=== PATIENT | male | born 1950 | race Caucasian/White ===

== ENCOUNTER → 2016-10-28 | Outpatient (CLI) | payer OTHER ==
[~2016-10-28] MED LIST: ALPRAZOLAM; ASA5UEC PO; ASPIR 8181 MG PO; ATORVASTATIN CA40 MG PO; CARVEDILOL12.5 MG PO; CIPRO500 MG PO; CIPROFLOXACIN500 M1 PO; COLACE100 MG PO; DIABETA 5MG TABL5 MG PO; DOXYCYCLINE 10100 MG PO; GLYBURIDE 5 MG T5 M1 PO; HYDROCODONE-AP1 EAC6 PO; IMDUR 30 MG TAB30 M1 PO; ISOSORBIDE DINI30 MG PO; LASIX 40 MG TAB40 M2 PO; LISINOPRIL5 MG PO; METFORMIN HCL500 MG PO; PAXIL10 MG; POTASSIUM20 PO; PRINIVIL10 MG PO; PRINIVIL20 MG PO; RAPAFLO4 MG PO; SIMVASTATIN20 MG PO; TOPROL XL50 MG PO; XARELTO15 MG PO; XARELTO20 MG PO
== END ==
LOC: NUC 10-20 11:14
DX: I11.0 Hypertensive heart disease with heart failure (principal); I50.9 Heart failure, unspecified

== ENCOUNTER → 2017-05-04 | Outpatient (CLI) | payer OTHER ==
--- NOTE | ~2017-05-04 | 2DMMODE ---
[facility] [place] [address] 2 D/M-MODE ECHOCARDIOGRAM Name: MARCEL LI Lico Room #: REG [facility]END[facility]#: [id number] Admission: 05/04/17 Attend Phys: Pola Payton MD Discharge: Date of : 52 Date of Service: 05/04/17 0947 Report #: [id number] THIS REPORT FOR: //name// APPROVED REPORT Study performed: 05/04/2017 08:42:59 EXAM: Comprehensive 2D, Doppler, and color-flow Echocardiogram Patient Location: Out-Patient Status: routine BSA: 2.34 HR: 68 bpm BP: 184/102 mmHg Rhythm: NSR Other Information Study Quality: Adequate Indications CAD. Hx: CABG, CHF, PE, HTN, HLP, morbid obesity 2D Dimensions RVDd: 38.19 mm LVEF(%): 49.87 (>50%) IVSd: 14.41 (7-11mm) LVOT Diam: 20.43 (18-24mm) LVDd: 52.24 mm PWd: 14.39 (7-11mm) Ascending Ao: 37.53 (22-36mm) LVDs: 38.93 (25-40mm) Aortic Root: 35.43 mm Green's LVEF: 49.87 % Volumes Left Atrial Volume (Systole) Single Plane 4CH: 87.28 mL Single Plane 2CH: 79.65 mL LA ESV Index: 38.00 mL/m2 Aortic Valve AoV Peak Tera.: 1.42 m/s AO Peak Gr.: 8.08 mmHg LVOT Max P.07 mmHg LVOT Max V: 1.23 m/s SHREYA Vmax: 2.84 cm2 Mitral Valve E/A Ratio: 1.5 MV Decel. Time: 184.70 ms [facility] [place] [address] 2 D/M-MODE ECHOCARDIOGRAM Name: MARCEL LI V Room #: [facility].#: [id number] Admission: 05/04/17 Attend Phys: Pola Payton MD Discharge: Date of : 52 Date of Service: 05/04/17 0947 Report #: [id number] MV E Max Tera.: 1.12 m/s MV A Tera.: 0.77 m/s MV PHT: 53.56 ms IVRT: 78.43 ms Pulmonary Valve PV Peak Tera.: 1.14 m/s PV Peak Gr.: 5.23 mmHg Pulmonary Vein P Vein S: 0.49 m/s P Vein A: 0.26 m/s P Vein D: 0.63 m/s P Vein A Dur.: 110.7 msec P Vein S/D Ratio: 0.78 Tricuspid Valve TR Peak Tera.: 1.99 m/s RAP Estimate: 5.00 mmHg TR Peak Gr.: 15.81 mmHg PA Pressure: 21.00 mmHg Left Ventricle The left ventricle is normal size. There is normal LV segmental wall motion. Mild concentric left ventricular hypertrophy. Left ventricular systolic function is normal. LVEF is 55%. Moderate diastolic dysfunction is present (pseudonormal filling). Right Ventricle The right ventricle is normal size. The right ventricular systolic function is normal. Atria Left atrium is mildly dilated. The right atrium size is normal. Aortic Valve The aortic valve is normal in structure. No aortic regurgitation is present. There is no aortic valvular stenosis. Mitral Valve The mitral valve is normal in structure. Trace mitral regurgitation. Tricuspid Valve The tricuspid valve is normal in structure. Trace to mild tricuspid regurgitation. Estimated PAP is 20-25mmHg. Pulmonic Valve The pulmonary valve is normal in structure. Trace pulmonic [address] [address] 2 D/M-MODE ECHOCARDIOGRAM Name: MARCEL LI V Room #: REG CL [facility]#: [id number] Admission: 05/04/17 Attend Phys: Pola Payton MD Discharge: Date of : 52 Date of Service: 05/04/17 0947 Report #: [id number] regurgitation. Great Vessels The aortic root is normal in size. Ascending aorta measures at the upper limits of normal. IVC is normal in size and collapses >50% with inspiration. Pericardium There is no pericardial effusion. <Conclusion> The left ventricle is normal size. Mild concentric left ventricular hypertrophy. Left ventricular systolic function is normal. Moderate diastolic dysfunction is present (pseudonormal filling). The right ventricle is normal size. Left atrium is mildly dilated. There is no aortic valvular stenosis. Trace mitral regurgitation. Trace to mild tricuspid regurgitation. Estimated PAP is 20-25mmHg. <ELECTRONICALLY SIGNED> By: Pola Payton MD 05/04/1747 6 6 Pola Payton MD /INF
== END ==
LOC: CV 08:27
DX: I25.10 Atherosclerotic heart disease of native coronary artery without angina pectoris (principal); I11.0 Hypertensive heart disease with heart failure; I50.9 Heart failure, unspecified; E78.5 Hyperlipidemia, unspecified; E66.01 Morbid (severe) obesity due to excess calories; Z86.711 Personal history of pulmonary embolism; Z95.5 Presence of coronary angioplasty implant and graft

== ENCOUNTER 2018-09-15 22:38 | Inpatient (IN) | payer OTHER ==
[~2018-09-15] VITALS: Ht 175.3 cm; Wt 121.6 kg
[~2018-09-15 22:38] MED LIST changes: +COREG25 MG PO; +LISINOPRIL40 MG PO; -LISINOPRIL5 MG PO
--- NOTE | 2018-09-15 22:50 | NUR ---
SPOKE TO EX- ON PHONE. WAS WILLING TO COME TO ER TO PROVIDE INFORMATION IF NEEDED
[2018-09-15 22:54] VITALS: BP 184/104
--- NOTE | 2018-09-15 23:02 | NUR ---
PATIENT TO CT SCAN
[2018-09-15 23:46] LABS: HEMATOCRIT 43.1 % (42.0-52.0); HEMOGLOBIN 14.9 gm/dL (14.0-18.0); MCH 29.1 pg (26.0-34.0); MCHC 34.4 g/dL (28.0-37.0); MCV 84.7 fL (80.0-100.0); RBC 5.1 mil/uL (4.50-6.00); RDW 13.5 % (10.5-14.5); WBC 5.9 thou/uL (4.0-11.0)
--- NOTE | 2018-09-15 23:46 | NUR ---
EX- AND SON AT BEDSIDE. PHYSICIAN NOTIFIED
[2018-09-16 00:29] LABS: CALCIUM 9.6 mg/dL (8.5-10.1); CREATININE 1.2 mg/dL (0.7-1.3); POTASSIUM 3.8 mmol/L (3.5-5.1)
--- NOTE | 2018-09-16 00:32 | NUR ---
PATIENT'S SON REPORTS HAVING SPOKEN TO HIS FATHER AT 2020 (APPROXIMATELY) AND THAT HIS SPEECH WAS NOT NORMAL AT THAT TIME. PHYSICIAN RETURNED TO BEDSIDE TO SPEAK WITH PATIENT AND FAMILY. SPEECH IS IMPROVING BUT IS NOT AT BASELINE. [facility] PLAN OF CARE IS ADMIT FOR TIA.
[2018-09-16 00:35] LABS: ALBUMIN 3.8 g/dL (3.4-5.0); DIRECT BILIRUBIN 0.2 mg/dL (<0.1-0.3); MAGNESIUM 1.8 mg/dL (1.8-2.4); TOTAL BILIRUBIN 1.2 mg/dL (<0.1-1.0); TOTAL PROTEIN 7.5 g/dL (6.4-8.2)
[2018-09-16 01:16] LABS: URINE BILIRUBIN NEGATIVE (Negative); URINE BLOOD TRACE (Negative); URINE CLARITY CLEAR; URINE COLOR YELLOW; URINE GLUCOSE-RANDOM* TRACE (Negative); URINE KETONES NEGATIVE (Negative); URINE LEUKOCYTES-REFLEX NEGATIVE (Negative); URINE NITRITE-REFLEX NEGATIVE (Negative); URINE PROTEIN (DIPSTICK) 2+ (Negative); URINE SPECIFIC GRAVITY 1.015 (1.005-1.035)
[2018-09-16 01:21] LABS: AMP/METHAMP Negative (Negative); BARBITURATES Negative (Negative); BENZODIAZEPINES Negative (Negative); COCAINE Negative (Negative); METHADONE Negative (Negative); OPIATES Negative (Negative); PCP Negative (Negative)
[2018-09-16 01:26] LABS: CASTS None Seen /LPF (None Seen); MUCUS None Seen strn/LPF (None Seen); SQUAMOUS None Seen /LPF (0-3)
[2018-09-16 01:27] LABS: BACTERIA-REFLEX None Seen /HPF (None Seen); CRYSTALS None Seen /LPF (None Seen); URINE RBC 0-2 Rare /HPF (0-2); URINE WBC-REFLEX None Seen /HPF (0-5)
[2018-09-16 02:02] VITALS: BP 168/85
[2018-09-16 02:12] VITALS: BP 185/82
[2018-09-16] MEDS ORDERED: TORSEMIDE5 MG PO (02:37)
[2018-09-16] MEDS ORDERED: GLIPIZIDE ER2.5 MG (02:38)
--- NOTE | 2018-09-16 03:39 | NUR ---
PT ADMITTED FROM ED WITH TIA.ARRIVED TO UNIT VIA CART ACCOMPANIED BY EX-.PT WAS ABLE TO AMBULATE FROM CART TO BED WITH STEADY GAIT.VSS.BLOOD PRESSURE ELEVATED.AFEBRILE.PT WAS ABLE TO ANSWER ALL ORIENTATION QUESTION ALTHOUGH HE STRUGGLES TO FIND WORDS REQUIRING TIME TO ANSWER.EQUAL STRENGTH BILATERALLY.PT C/O INCONTINENCE.AMBULATES TO BR WITH SBA,STEADY GAIT.SKIN W/O LESIONS OR OPEN WOUNDS.NSR ON MONITOR.RA W/O RESP DISTRESS.T DENIES PAIN.PLEASNTLY DEQ3SNTYHM DIFFICULTIES IN FINDING WORDS TO EXPRESS HIMSELF.PT ORIENTED RM,MEDS RECONCILLED.PT DENIES NAY CONCERNS STATING I THINK I AM BETTER NOW.WILL CONT TO MONITOR PER POC.
[2018-09-16] MEDS ORDERED: GLUCOTROL5 MG PO (05:36)
[2018-09-16 07:41] VITALS: BP 159/84
[2018-09-16 08:38] LABS: CHOLESTEROL 141 mg/dL (<200); HDL CHOLESTEROL 32 mg/dL (>40); LDL CHOLESTEROL 81 mg/dL (<100); TC:HDL 4.4 Ratio (Not establshd); TRIGLYCERIDE 141 mg/dL (<150); VLDL 28 mg/dL (<40)
[2018-09-16 11:19] VITALS: BP 154/81
[2018-09-16 16:07] VITALS: BP 148/75
[2018-09-16 16:09] LABS: GLYCOHEMOGLOBIN (HGB A1C) 7.8 % (4.8-5.6)
--- NOTE | 2018-09-16 20:03 | NUR ---
PT ALERT AND ORIENTED TIMES FOUR. VSS, 987%RA, SR ON TELE. PT DENIES PAIN/SOA. PT TOLERATES MEDS AND MEALS. PT UP WITH STANDBY ASSIST. FAMILY AT BEDSIDE. PT PROGRESSING TOWRADS POC GOALS.
[2018-09-16 20:55] VITALS: BP 164/92
[2018-09-17 00:30] VITALS: BP 189/98
[2018-09-17 03:15] VITALS: BP 195/98
--- NOTE | 2018-09-17 07:19 | HC ---
[facility] [address] [place] [address] CONSULTATION Name: MARCEL LI V Room #: 359-P [facility] [place] .R.#: [id number] Admission: 09/16/18 ������������������ Attend Phys: Ted Barraza MD Discharge: ������������������ Date of : 52 Report #: [id number] THIS REPORT FOR: //name// CC: Ted REN unknown DATE OF SERVICE: 09/16/2018 NEUROLOGY CONSULT HISTORY OF PRESENT ILLNESS: The patient is a 68-year-old male who drove himself to the Emergency Room stating that he did not feel well. The patient was unable to verbalize how long he had not been feeling well, but when asked questions he might repeat himself several times. He also answered many questions, I am not sure. The patient's is in the room and she states she thought that by yesterday evening he seemed to be more clear headed and may be better overall. However, the patient states this morning when he woke up, he thought he was feeling pretty good and now that he is sitting up he does not feel as well. He denies headache, double vision, blurry vision, neck stiffness. He has never had an event like this in the past. He takes aspirin 81 mg daily. PAST MEDICAL HISTORY: Coronary artery disease, congestive heart failure, hypertension, pulmonary embolus, diabetes. PAST SURGICAL HISTORY: Lap band placed and removed, tonsillectomy, transurethral prostatectomy, IVC filter, coronary artery bypass graft. MEDICATIONS: Atorvastatin 40 mg daily, potassium 20 mEq daily, Coreg 25 mg b.i.d., lisinopril 40 mg daily, glipizide 5 mg b.i.d., aspirin 81 mg daily, torsemide daily, metformin 1000 mg b.i.d. ALLERGIES: PENICILLIN AND SULFA. PHYSICAL EXAMINATION: VITAL SIGNS: Temperature is 37, pulse rate 71, respiratory rate 17, blood pressure 159/84, admission blood pressure 184/104, bedside pulse oximetry 95% on room air. NEUROLOGIC: Cranial nerves 2-12 are grossly intact. Motor exam demonstrates symmetrical strength in all 4 extremities with tone and bulk normal. Reflexes are symmetrical throughout. Coordination revealed intact [id number]. Gait was not tested. LABORATORY WORK: Hematology: White blood cell count 5.9, hemoglobin 14.9, hematocrit 43.1, platelet count 146,000. Urinalysis 2+ protein, trace blood. Chemistry: Sodium 137, potassium 3.8, chloride 99, carbon dioxide 27, BUN 17, [address] [address] CONSULTATION Name: MARCEL LI V Room #: 359-[facility]#: [id number] Admission: 09/16/18 ������������������ Attend Phys: Ted Barraza MD Discharge: ������������������ Date of : 52 Report #: [id number] creatinine 1.2, glucose 188. Toxicology screen negative. IMAGING DATA: CT scan of the head unremarkable. IMPRESSION: This patient has altered mental status. I could see that although he was able to name and repeat he had difficulty coming up with answers and appeared to be generally slow thinking. The patient does have an MRI of the head ordered for this morning. If no stroke is found, then I would recommend an electroencephalogram and perhaps a lumbar puncture to look for an infectious etiology. In the meantime, the patient may continue aspirin. He is now on 325 mg daily along with his other home medications. I have also ordered a B12 level and thyroid studies to look for other causes of altered mental status. I thank you for your kind referral of the patient and will continue to follow him with you. ��������������������������������������������� <ELECTRONICALLY SIGNED> ���������������������������������������� By: Tierra Garcia DO ��������������������������������������������� 09/17/18 0719 1053 1156 Tierra Garcia DO /nt
[2018-09-17 07:45] VITALS: BP 153/83
--- NOTE | 2018-09-17 08:28 | NUR ---
patient is alert to self and sometime situation. patient has intermientent confusion and weakness. patient nih score is from 3-7. patient is nsr on tele. patients lbm was the . patient is pending mri this am. patient is incontient. patient is on room air. patient denies pain. patient is resting comfortably in bed. wcm. patient is progressing to goals.
--- NOTE | 2018-09-17 09:12 | EKG ---
[place] [address] [facility] [place] [address] ELECTROCARDIOGRAM REPORT Name: MARCEL LI V Room #: 359-P ADM IN M.R.#: [id number] ������������������ Admission: 09/16/18 ������������������ Attend Phys: Ted Barraza MD Discharge: ������������������ Date of : 52 Report #: [id number] ����������������������������������������������������������������� [id number] THIS REPORT FOR: //name// 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1950 Requested By: Christi Cooley Order Number: [id number] MD: Real Storm Measurements Intervals [place] Rate: 78 P: 36 NM: 176 QRS: -50 QRSD: 92 T: 34 QT: 379 QTc: 432 Interpretive Statements Sinus rhythm LAD, consider LAFB Abnormal R-wave progression, late transition Borderline T wave abnormalities Compared to ECG 09/26/2014 07:15:52 [place] has shifted leftward Electronically Signed On 09-17-2018 9:12:44 CDT by Real Storm [email or web address] ��������������������������������������������� <ELECTRONICALLY SIGNED> ���������������������������������������� By: Real Storm MD, [facility] ��������������������������������������������� 09/17/18 0912 [id number] [id number] Real Storm MD, [facility] /EPI
--- NOTE | 2018-09-17 13:41 | NUR ---
ASSESSMENT: CM REVIEWED CHART AND MET WITH PATIENT AT THE BEDSIDE. PT REPORTS THAT HE LIVES ALONE IN AN APT. PT REPORTS ABOUT 24 STEPS WITH HANDRAILS TO HIS APT. PT REPORTS ONCE INSIDE HE HAS NO STEPS. PT REPORTS THAT HE IS INDEPENDENT WITH ADLS AND AMBULATION. PT DENIES HAVING ANY DME OR THE NEED FOR IT. CM DISCUSSED ROLE. PT STATES HE IS DOING FINE AND DOES NOT FEEL HE NEEDS HH OR ANYTHING AT DISCHARGE. PT REPORTS HE HAS FAMILY THAT IS SUPPORTIVE. PT DENIES HAVING ANY NEEDS FROM CM.
[2018-09-17] MEDS ORDERED: ASPIRIN325 PO (17:47)
[2018-09-17] MEDS ORDERED: VITAMIN B122500 MCG PO (17:54)
--- NOTE | 2018-09-17 18:28 | NUR ---
ASSUMED CARE OF PT AT 0700. PT ORIENTATED TO PERSON AND PLACE THIS MORNING WITH SIGNIFICANT CONFUSION BUT HAS IMPROVED SIGNIFICANTLY THROUGHOUT DAY. AT THIS TIME PT IS A&Ox4. NO DIFFICULTY IN FINDING WORDS, NO EVIDENCE OF EXTREMITY DRIFT. NIH 0. PT HAD EEG AND MRI TODAY. PT HAS BEEN OKAY'D TO DC AT THIS TIME. WILL GATHER DC MATERIALS AND PROCESS DC.
[2018-09-17 18:39] VITALS: BP 153/83
--- NOTE | 2018-09-17 20:23 | NUR ---
PT WITH NEG EEG AND MRI SO DISCHARGED TO HOME TONIGHT...INSTRUCTIONS GIVEN...
--- NOTE | 2018-09-18 14:11 | EEG ---
[facility] [place] [place] [address] ELECTROENCEPHALOGRAM Name: MARCEL LI V Room #: 359-P [facility] IN M.R.#: [id number] ������������������ Admission: 09/16/18 ������������������ Attend Phys: Ted Barraza MD Discharge: 09/17/18 ������������������ Date of : 52 Report #: [id number] ����������������������������������������������������������������� [id number] THIS REPORT FOR: //name// CC: Ted Barraza [facility] unknown DATE OF SERVICE: 09/17/2018 This patient is being evaluated for episode of speech difficulty. EEG was done by placing the electrodes by standard 10-20 system of electrode placement. Both referential and sequential montages were used for recording. Background activity in this patient's EEG is about 9 Hz and 30 microvolt. The patient became drowsy and that is associated with bilateral slowing and vertex sharp waves. Photic stimulation was unremarkable. Throughout the record, no active epileptiform activity was noticed. Moderate amount of artifact is present in this EEG because of muscle artifact and perspiration artifact. IMPRESSION: This patient's EEG is intermixed with a moderate amount of artifact. It does not demonstrate any clear-cut epileptiform activity. It might be mentioned that EEG can be normal in a patient with seizure disorder. Thank you very much for this referral. ���������������������������������������� <ELECTRONICALLY SIGNED> ���������������������������������������� By: Denzel Khan MD ��������������������������������������������� 09/18/18 1411 1604 1615 Denzel Khan MD /nt
--- NOTE | 2018-09-19 11:35 | HC ---
[facility] [place] [address] [place] [address] CONSULTATION Name: MARCEL LI Lico Room #: 359-P [facility] IN .R.#: [id number] Admission: 09/16/18 ������������������ Attend Phys: Ted Barraza MD Discharge: 09/17/18 ������������������ Date of : 52 Report #: [id number] THIS REPORT FOR: //name// CC: Ted REN unknown HISTORY OF PRESENT ILLNESS: The patient is a 68-year-old male who felt confused. The patient was able to drive himself to the Emergency Room and was repeating himself and also having difficulty coming up with words. The patient was admitted for further evaluation. When I saw the patient, he told me that he was already feeling better, but was not back to normal. He does have a history of hypertension and has untreated sleep apnea. He apparently tried to use the CPAP machine, but as many people do, he had difficulty with it. In hospital, the patient had an MRI and CT scan of the head. The MRI of the head showed no acute abnormalities, but age-related findings such as volume loss and mild microvascular disease. The electroencephalogram was unremarkable for the most part. PAST MEDICAL HISTORY: Hypertension, coronary artery disease, diabetes, hyperlipidemia. PAST SURGICAL HISTORY: Lap band placed and removed, tonsillectomy, transurethral prostatectomy, IV filters placed, coronary artery bypass graft. MEDICATIONS: At home . DICTATION ENDS HERE ��������������������������������������������� <ELECTRONICALLY SIGNED> ���������������������������������������� By: Tierra Garcia DO ��������������������������������������������� 09/19/18 1135 0830 0956 Tierra Garcia, /nt
== END 2018-09-17 20:52 | disposition home or self-care (01) | DRG 304 ==
LOC: ER 22:38 → EROBS 09-16 01:53 → 3W 09-16 01:53
PROVIDERS: Emergency Medicine; Nurse Practitioner Acute Care; ADMIT Hospitalist
DX: I16.0 Hypertensive urgency (principal); G93.41 Metabolic encephalopathy; R47.01 Aphasia; E11.9 Type 2 diabetes mellitus without complications; N40.0 Benign prostatic hyperplasia without lower urinary tract symptoms; I50.9 Heart failure, unspecified; I25.10 Atherosclerotic heart disease of native coronary artery without angina pectoris; E53.8 Deficiency of other specified B group vitamins; I11.0 Hypertensive heart disease with heart failure; Z95.1 Presence of aortocoronary bypass graft; Z86.711 Personal history of pulmonary embolism; Z86.718 Personal history of other venous thrombosis and embolism; Z90.79 Acquired absence of other genital organ(s); Z79.82 Long term (current) use of aspirin; Z79.84 Long term (current) use of oral hypoglycemic drugs; Z79.899 Other long term (current) drug therapy; Z88.0 Allergy status to penicillin; Z88.2 Allergy status to sulfonamides; Z80.0 Family history of malignant neoplasm of digestive organs; Z82.3 Family history of stroke; Z82.49 Family history of ischemic heart disease and other diseases of the circulatory system
CPT/HCPCS: 10879

== ENCOUNTER → 2018-10-04 | Outpatient (CLI) | payer OTHER ==
[~2018-10-04] VITALS: Ht 175.3 cm; Wt 125.2 kg
[~2018-10-04] MED LIST changes: +ASPIRIN325 PO; +GLIPIZIDE ER2.5 MG; +GLUCOTROL5 MG PO; +OXYBUTYNIN 5 MG5 M2 PO; +TORSEMIDE5 MG PO; +VITAMIN B122500 MCG PO
[2018-10-04 08:54] VITALS: BP 210/92
[2018-10-04 08:57] LABS: HEMATOCRIT 39.4 % (42.0-52.0); HEMOGLOBIN 13.2 gm/dL (14.0-18.0); MCH 28.7 pg (26.0-34.0); MCHC 33.6 g/dL (28.0-37.0); MCV 85.4 fL (80.0-100.0); RBC 4.61 mil/uL (4.50-6.00); RDW 13.9 % (10.5-14.5); WBC 7.4 thou/uL (4.0-11.0)
[2018-10-04 09:08] LABS: CALCIUM 9.8 mg/dL (8.5-10.1); POTASSIUM 4.1 mmol/L (3.5-5.1)
--- NOTE | 2018-10-04 15:28 | CATHLAB ---
[facility] [address] [place] [address] INVASIVE PROCEDURE REPORT Name: MARCEL LI V Room #: REG [facility]#: [id number] ������������� Admission: 10/04/18 ������������� Attend Phys: Pola Payton MD Discharge: ��� ������������� ��� Date of : 52 Date of Service: 10/04/18 1528 �� Report #: [id number] �������� ��������������������������������������������[id number] THIS REPORT FOR: //name// APPROVED REPORT Study performed: 10/04/2018 09:26:27 Patient Details Patient Status: Out-Patient Room #: The patient is a 68 year-old male Event Personnel Pola Payton Quill Collector, Hamilton Christie RN RN, All Jensen RTShashi Soni Valisa Monitor Procedures Performed Left Heart Cath Coronaries, Bypass Grafts [id number] CCORCABG Indication Dyspnea, Positive stress test Risk Factors Obesity, Hypercholesterolemia, Coronary Artery DiseaseHypertension, Diabetes Previous Procedures/Diagnoses Previous CABG Procedure Narrative The Right Groin^ was infiltrated with 1% Lidocaine subcutaneous anesthesia. A PINNACLE 4FR Sheath #[id number] sheath was inserted into the RFA^. Coronary angiography was performed using coronary diagnostic catheters. The right coronary system was accessed and visualized with a JR4 catheter. The left coronary system was accessed and visualized with a JL4 catheter. The left ventricle was accessed and visualized with a PIGTAIL catheter. Hemostasis was obtained with manual pressure following sheath removal without any complications. The patient tolerated the procedure well and there were no complications associated with the procedure. There was no hematoma. Intraoperative Conscious Sedation Sedation start time: 933 Case end Time: 953 [place] [address] [place] [address] INVASIVE PROCEDURE REPORT Name: MARCEL LI Lico [facility] [id number] ������������� Admission: 10/04/18 ������������� Attend Phys: Pola Payton MD Discharge: ��� ������������� ��� Date of : 52 Date of Service: 10/04/18 1528 �� Report #: [id number] �������� ��������������������������������������������[id number] Fentanyl 50 mcg Versed 1 mg Fluoro Time: 4.05 minutes Dose: DAP 8987.00 cGycm2 1208 mGy Contrast Type and Amount: Omnipaque 115 ml Coronary Angiography The patient's coronary anatomy is right dominant. Diagnostic Cath Left Main There is a moderate stenosis in the distal segment. LAD There is a severe stenosis in the proximal segment. There is a patent SABA graft with an end-to-side anastomosis to the mid LAD. Diagonal 1 There is a small-caliber vessel, with moderate disease. Diagonal 2 There is a patent sequential SVG with a olgc-lo-ivms anastomosis to the second diagonal artery, side to side anastomosis to OM1 and end-to-side anastomosis to OM 2. Circumflex There is a severe occlusion in the proximal segment. OM1 There is a severe occlusion in the proximal segment. Right Coronary This is a moderate to large caliber vessel, dominant. There is mild disease in the midsegment. The SVG to the distal RCA is occluded secondary to competitive flow from the [place] vessel. R PDA This is a moderate size caliber vessel, with a mild stenosis at the ostium, 30%. RPLV This is a moderate size caliber vessel, patent with no flow-limiting lesions. Left Ventriculography The left ventricle is normal in size with normal contractility. The left ventricular ejection fraction is estimated to be 55-60%. Hemodynamics The aortic pressure is 234/104 mmHg with a mean of 151 mmHg. The left ventricular pressure is 198/15 mmHg with a mean of mmHg. The left ventricular end diastolic pressure is 38 mmHg. Conclusion 1. There is a patent SABA graft to the mid LAD. 2. There is a patent sequential SVG to the second diagonal artery, first obtuse marginal artery and second obtuse marginal artery. 3. There is a patent [place] RCA filling a PDA and RPL branches. [facility] [address] [place] [address] INVASIVE PROCEDURE REPORT Name: MARCEL LI V Room #: REG [facility]#: [id number] ������������� Admission: 10/04/18 ������������� Attend Phys: Pola Payton MD Discharge: ��� ������������� ��� Date of : 52 Date of Service: 10/04/18 1528 �� Report #: [id number] �������� ��������������������������������������������[id number] SVG to the RCA is occluded secondary to competitive flow down the [place] vessel. 4. Normal LV systolic function. 5. Recommend aggressive risk factor management. ��������������������������������������������� <ELECTRONICALLY SIGNED> ���������������������������������������� By: Pola Patyon MD ��������������������������������������������� 10/04/18 1528 1528 1528 Pola Payton MD /INF
--- NOTE | 2018-10-05 07:21 | EKG ---
[place] [address] 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1950 Requested By: Pola Payton Order Number: [id number] MD: Real Storm Measurements Intervals [place] Rate: 55 P: 36 LA: 174 QRS: -31 QRSD: 100 T: -18 QT: 475 QTc: 455 Interpretive Statements Sinus rhythm Left axis deviation Nonspecific T wave abnormality Compared to ECG 09/15/2018 22:46:56 Nonspecific change in the T wave abnormality Electronically Signed On 10-05-2018 7:21:02 CDT by Real Storm [email or web address] ��������������������������������������������� <ELECTRONICALLY SIGNED> ���������������������������������������� By: Real Storm MD, [facility] ��������������������������������������������� 10/05/18 0721 855 4 Real Storm MD, [facility] /EPI
== END | disposition home or self-care (01) ==
LOC: CATH 06:12
PROVIDERS: Internal Medicine Cardiovascular Disease
DX: I25.810 Atherosclerosis of coronary artery bypass graft(s) without angina pectoris (principal); I11.0 Hypertensive heart disease with heart failure; I50.9 Heart failure, unspecified; E78.5 Hyperlipidemia, unspecified; E11.9 Type 2 diabetes mellitus without complications; G47.30 Sleep apnea, unspecified; N40.0 Benign prostatic hyperplasia without lower urinary tract symptoms; Z79.82 Long term (current) use of aspirin; Z98.890 Other specified postprocedural states; Z86.711 Personal history of pulmonary embolism; Z95.1 Presence of aortocoronary bypass graft; Z86.73 Personal history of transient ischemic attack (TIA), and cerebral infarction without residual deficits; Z86.718 Personal history of other venous thrombosis and embolism; Z79.01 Long term (current) use of anticoagulants; Z88.0 Allergy status to penicillin; Z88.2 Allergy status to sulfonamides; E66.09 Other obesity due to excess calories; Z79.891 Long term (current) use of opiate analgesic

== ENCOUNTER → 2019-08-15 | Outpatient (CLI) | payer OTHER | LOC: SJCVCIMAG 07-29 13:56 | DX: R94.31 Abnormal electrocardiogram [ECG] [EKG] (principal); I25.10 Atherosclerotic heart disease of native coronary artery without angina pectoris; I10 Essential (primary) hypertension; E78.00 Pure hypercholesterolemia, unspecified; R60.9 Edema, unspecified ==

== ENCOUNTER → 2020-02-17 | Outpatient (CLI) | payer OTHER | LOC: SJCVC 09:26 | PROVIDERS: ATTEND Internal Medicine Cardiovascular Disease | DX: R94.31 Abnormal electrocardiogram [ECG] [EKG] (principal); I25.10 Atherosclerotic heart disease of native coronary artery without angina pectoris; I10 Essential (primary) hypertension; R60.9 Edema, unspecified; E78.00 Pure hypercholesterolemia, unspecified ==

== ENCOUNTER → 2020-09-07 | Outpatient (CLI) | payer OTHER | LOC: SJCVCIMAG 09:11 | PROVIDERS: ATTEND Internal Medicine Cardiovascular Disease | DX: I25.10 Atherosclerotic heart disease of native coronary artery without angina pectoris (principal); I49.3 Ventricular premature depolarization; E78.00 Pure hypercholesterolemia, unspecified; E11.9 Type 2 diabetes mellitus without complications; R60.9 Edema, unspecified; R07.89 Other chest pain; R06.00 Dyspnea, unspecified; I11.0 Hypertensive heart disease with heart failure; I50.41 Acute combined systolic (congestive) and diastolic (congestive) heart failure; N40.0 Benign prostatic hyperplasia without lower urinary tract symptoms; G47.30 Sleep apnea, unspecified; E78.5 Hyperlipidemia, unspecified; Z95.1 Presence of aortocoronary bypass graft; Z98.890 Other specified postprocedural states; Z79.82 Long term (current) use of aspirin; Z88.8 Allergy status to other drugs, medicaments and biological substances; Z79.84 Long term (current) use of oral hypoglycemic drugs; Z79.899 Other long term (current) drug therapy; Z86.718 Personal history of other venous thrombosis and embolism; Z82.49 Family history of ischemic heart disease and other diseases of the circulatory system ==

== ENCOUNTER → 2021-03-16 | Outpatient (CLI) | payer OTHER | LOC: SJCVC 11:03 | PROVIDERS: ATTEND Internal Medicine Cardiovascular Disease | DX: R94.31 Abnormal electrocardiogram [ECG] [EKG] (principal); R00.1 Bradycardia, unspecified; I11.0 Hypertensive heart disease with heart failure; I50.41 Acute combined systolic (congestive) and diastolic (congestive) heart failure; I25.10 Atherosclerotic heart disease of native coronary artery without angina pectoris; E78.00 Pure hypercholesterolemia, unspecified; E11.9 Type 2 diabetes mellitus without complications; R60.9 Edema, unspecified; M19.90 Unspecified osteoarthritis, unspecified site; N40.0 Benign prostatic hyperplasia without lower urinary tract symptoms; G47.33 Obstructive sleep apnea (adult) (pediatric); Z86.718 Personal history of other venous thrombosis and embolism; Z72.89 Other problems related to lifestyle; Z79.82 Long term (current) use of aspirin; Z79.84 Long term (current) use of oral hypoglycemic drugs; Z79.899 Other long term (current) drug therapy; Z82.49 Family history of ischemic heart disease and other diseases of the circulatory system; Z88.8 Allergy status to other drugs, medicaments and biological substances ==